=== PATIENT | male | born 1940 | race African-American/Black ===

== ENCOUNTER 2021-11-10 20:40 | Inpatient (IN) | payer OTHER ==
[~2021-11-10] VITALS: Ht 193 cm; Wt 173.9 kg
[2021-11-10] MEDS ORDERED: METHYLPREDNISOLONE SOD SUCC 125 MG/2 ML VIAL IV STA (21:17)
[2021-11-10] MEDS ORDERED: IPRATROPIUM BROMIDE (0.02%) 0.5MG/2.5ML NEB HHN STA (21:17)
[2021-11-10] MEDS ORDERED: ALBUTEROL (0.083%) 2.5MG/3ML NEB HHN SCH (21:30)
[2021-11-10 21:56] LABS: BASOPHILS % 1.3 % (0.0-2.0); EOSINOPHILS % 1.1 % (0.0-5.0); HEMATOCRIT. 36.2 % (42.0-52.0); HEMOGLOBIN. 11.2 g/dL (14.0-18.0); LYMPHOCYTES % 17.6 % (20.0-50.0); MEAN CORPUSCULAR HEMOGLOBIN 23.3 pg (28.0-32.0); MEAN CORPUSCULAR VOLUME 75.8 fL (80.0-94.0); MEAN PLATELET VOLUME 10.4 fl (7.4-10.4); MONOCYTES % 11.5 % (2.0-8.0); NEUTROPHILS % 68.5 % (40.0-76.0); PLATELET 115 x1000/uL (130-400); RED BLOOD CELL COUNT 4.78 mill/uL (4.7-6.1)
[2021-11-10 22:03] LABS: CHLORIDE 101 mEq/L (98-107)
[2021-11-10] MEDS ORDERED: DOXYCYCLINE HYCLATE 100 MG/VIAL IV ONE (23:45)
[2021-11-10] MEDS ORDERED: CEFTRIAXONE 1 G PREMIX 50 ML IV ONE (23:45)
[2021-11-11] MEDS ORDERED: DOXYCYCLINE 100MG in DEXTROSE 5% WATER 100ML IV SCH ×2
[2021-11-11] MEDS ORDERED: METOPROLOL TARTRATE 5MG/5ML VIAL IV SCH (00:45)
[2021-11-11] MEDS ORDERED: FUROSEMIDE 40MG/4ML VIAL IVP ONE (00:45)
[2021-11-11] MEDS ORDERED: IPRATROPIUM/ALBUTEROL 0.5-3(2.5)MG/3ML NEB HHN PRN (12:45)
[2021-11-11] MEDS ORDERED: ACETAMINOPHEN 325MG TABLET PO PRN (12:45)
[2021-11-11] MEDS: METHYLPREDNISOLONE SOD SUCC 40 MG/ML VIAL IV SCH ×2 (14:13→21:16)
[2021-11-11 15:27] VITALS: BP 133/83
[2021-11-11] MEDS ORDERED: ASPI-1497 MT (15:45)
[2021-11-11] MEDS ORDERED: FURO40TA5 MT (15:45)
[2021-11-11] MEDS ORDERED: ATOR-2 MT (15:45)
[2021-11-11] MEDS ORDERED: ATEN-42 MT (15:45)
[2021-11-11] MEDS ORDERED: TERA2CAP4 MT (15:45)
[2021-11-11] MEDS ORDERED: FLUT1BLS12 IH (15:45)
[2021-11-11] MEDS ORDERED: LOSA25TA26 MT (15:45)
[2021-11-11] MEDS ORDERED: ALBUTERO (15:45)
[2021-11-11] MEDS ORDERED: GLIP1TAB4 MT (15:45)
[2021-11-11] MEDS ORDERED: CHOL400D7 PO (15:45)
[2021-11-11 16:00] VITALS: BP 118/80
[2021-11-11 16:12] LABS: HEMATOCRIT. 37.3 % (42.0-52.0); HEMOGLOBIN. 10.8 g/dL (14.0-18.0); LYMPHOCYTES % 12.3 % (20.0-50.0); MEAN CORPUSCULAR HEMOGLOBIN 22.7 pg (28.0-32.0); MEAN CORPUSCULAR VOLUME 78.5 fL (80.0-94.0); MEAN PLATELET VOLUME 10.7 fl (7.4-10.4); MONOCYTES % 9.9 % (2.0-8.0); NEUTROPHILS % 77.8 % (40.0-76.0); PLATELET 116 x1000/uL (130-400); RED BLOOD CELL COUNT 4.76 mill/uL (4.7-6.1); RED CELL DISTRIBUTION WIDTH 21.3 % (11.6-14.6)
[2021-11-11] MEDS: FUROSEMIDE 40MG/4ML VIAL IVP SCH (17:56)
[2021-11-11] MEDS ORDERED: DILTIAZEM HCL 5MG/ML 5ML VIAL IV NR (18:45)
[2021-11-11] MEDS ORDERED: SODIUM POLYSTYRENE SULFONATE 15 G/60 ML BOT PO NR (18:45)
[2021-11-11 20:00] VITALS: BP 139/63
[2021-11-11] MEDS: FAMOTIDINE 20MG TABLET PO SCH (21:15)
[2021-11-11] MEDS: METOPROLOL TARTRATE 50MG TABLET PO SCH (21:16)
[2021-11-11] MEDS: ENOXAPARIN 40MG/0.4ML SYR SUBCUT SCH (21:16)
[2021-11-12] VITALS (17 sets, daily range): BP systolic 54–154; BP diastolic 34–102
[2021-11-12] MEDS: DILTIAZEM HCL 60MG TABLET PO SCH ×3 (00:40→12:34)
[2021-11-12] MEDS: METHYLPREDNISOLONE SOD SUCC 40 MG/ML VIAL IV SCH (05:31)
[2021-11-12 06:13] LABS: HEMATOCRIT. 36.1 % (42.0-52.0); LYMPHOCYTES % 8.1 % (20.0-50.0); MEAN CORPUSCULAR HEMOGLOBIN 23.6 pg (28.0-32.0); MEAN CORPUSCULAR VOLUME 77.4 fL (80.0-94.0); MEAN PLATELET VOLUME 10.5 fl (7.4-10.4); MONOCYTES % 8.8 % (2.0-8.0); NEUTROPHILS % 83.1 % (40.0-76.0); PLATELET 112 x1000/uL (130-400); RED BLOOD CELL COUNT 4.66 mill/uL (4.7-6.1); RED CELL DISTRIBUTION WIDTH 21.8 % (11.6-14.6)
[2021-11-12] MEDS: FUROSEMIDE 40MG/4ML VIAL IVP SCH (06:18)
[2021-11-12] MEDS: METOPROLOL TARTRATE 50MG TABLET PO SCH (08:21)
[2021-11-12] MEDS: ENOXAPARIN 40MG/0.4ML SYR SUBCUT SCH ×2 (08:21→21:37)
[2021-11-12 10:16] LABS: BG BASE EXCESS 3.3 mmol/L (-2.0-2.0); BG CARBOXYHEMOGLOBIN 0.1 % (0.5-1.5); BG DEOXYHEMOGLOBIN 7.8 % (0.0-5.0); BG FRACTION INSPIRED OXYGEN 28; BG HCO3 ACT 36.1 mmol/L (22.0-26.0); BG METHEMOGLOBIN 0.5 % (0.0-1.5); BG OXYGEN SATURATION 92.2 % (92.0-98.5); BG OXYHEMOGLOBIN 91.6 % (94.0-97.0); BG PCO2 118.8 mmHg (35.0-45.0); BG PH 7.101 (7.350-7.450); BG PO2 78.3 mmHg (75.0-100.0); BG SAMPLE SITE LEFT RADIAL; BG TOTAL HEMOGLOBIN 11.9 g/dL (12.0-18.0); BG VENT MODE NASAL CANNULA
[2021-11-12] MEDS: IPRATROPIUM/ALBUTEROL 0.5-3(2.5)MG/3ML NEB HHN SCH ×3 (11:48→20:30)
[2021-11-12] MEDS ORDERED: INSULIN REGULAR (HUMULIN R) UD 100 UNITS/ML SYR IV SCH (12:00)
[2021-11-12] MEDS ORDERED: SODIUM BICARBONATE 8.4% 1 MEQ/ML 50ML SYR IV SCH (12:00)
[2021-11-12] MEDS ORDERED: DEXTROSE 50% WATER 50ML SYRINGE IV SCH (12:00)
[2021-11-12] MEDS ORDERED: CALCIUM GLUCONATE 1GM PREMIX 50 ML IV SCH (13:00)
[2021-11-12] MEDS ORDERED: SODIUM POLYSTYRENE SULFONATE 15 G/60 ML BOT PO SCH (13:00)
[2021-11-12] MEDS ORDERED: LIDOCAINE HCL 1% 20ML VIAL (Pyxis) INJ ONE (13:27)
[2021-11-12 14:41] LABS: BG BASE EXCESS 1.2 mmol/L (-2.0-2.0); BG CARBOXYHEMOGLOBIN 0.9 % (0.5-1.5); BG FRACTION INSPIRED OXYGEN 50; BG METHEMOGLOBIN 0.4 % (0.0-1.5); BG OXYHEMOGLOBIN 95.7 % (94.0-97.0); BG PCO2 102.5 mmHg (35.0-45.0); BG PH 7.125 (7.350-7.450); BG PO2 103.9 mmHg (75.0-100.0); BG SAMPLE SITE LEFT RADIAL; BG TOTAL HEMOGLOBIN 11.7 g/dL (12.0-18.0); BG TOTAL RESPIRATORY RATE 22 b/min; BG VENT MODE MASK - BIPAP
[2021-11-12] MEDS ORDERED: FUROSEMIDE 40MG/4ML VIAL IVP SCH ×2 (15:00→18:00)
[2021-11-12] MEDS: METHYLPREDNISOLONE SOD SUCC 125 MG/2 ML VIAL IV SCH ×3 (15:26→23:27)
[2021-11-12] MEDS ORDERED: BUMETANIDE 1MG/4ML VIAL IV NR (20:00)
[2021-11-12] MEDS ORDERED: SODIUM POLYSTYRENE SULFONATE 15 G/60 ML BOT PO NR (20:00)
[2021-11-12] MEDS: FAMOTIDINE 20MG TABLET PO SCH (21:32)
[2021-11-12] MEDS: LACTULOSE 20G/30ML UDC PO SCH (21:32)
[2021-11-12] MEDS: DILTIAZEM HCL 30MG TABLET PO SCH (21:36)
[2021-11-12 22:21] LABS: BG BASE EXCESS -0.3 mmol/L (-2.0-2.0); BG CARBOXYHEMOGLOBIN 0.7 % (0.5-1.5); BG DEOXYHEMOGLOBIN 5.6 % (0.0-5.0); BG FRACTION INSPIRED OXYGEN 40; BG HCO3 ACT 28.8 mmol/L (22.0-26.0); BG METHEMOGLOBIN 0.3 % (0.0-1.5); BG OXYGEN SATURATION 94.3 % (92.0-98.5); BG OXYHEMOGLOBIN 93.4 % (94.0-97.0); BG PH 7.226 (7.350-7.450); BG PO2 81.8 mmHg (75.0-100.0); BG SAMPLE SITE RIGHT RADIAL; BG TOTAL HEMOGLOBIN 12.1 g/dL (12.0-18.0); BG TOTAL RESPIRATORY RATE 28 b/min; BG VENT MODE MASK - BIPAP
[2021-11-13] VITALS (21 sets, daily range): BP systolic 99–149; BP diastolic 49–114
[2021-11-13] MEDS: IPRATROPIUM/ALBUTEROL 0.5-3(2.5)MG/3ML NEB HHN SCH ×4 (00:26→21:39)
[2021-11-13 05:25] LABS: BG BASE EXCESS 6.8 mmol/L (-2.0-2.0); BG DEOXYHEMOGLOBIN 6.7 % (0.0-5.0); BG FRACTION INSPIRED OXYGEN 40; BG HCO3 ACT 36.8 mmol/L (22.0-26.0); BG METHEMOGLOBIN 0.3 % (0.0-1.5); BG OXYGEN SATURATION 93.2 % (92.0-98.5); BG PCO2 86.6 mmHg (35.0-45.0); BG PH 7.246 (7.350-7.450); BG PO2 76.3 mmHg (75.0-100.0); BG SAMPLE SITE RIGHT RADIAL; BG TOTAL RESPIRATORY RATE 29 b/min; BG VENT MODE MASK - BIPAP
[2021-11-13] MEDS: DILTIAZEM HCL 30MG TABLET PO SCH ×3 (06:29→22:08)
[2021-11-13] MEDS: LACTULOSE 20G/30ML UDC PO SCH (06:29)
[2021-11-13] MEDS: METHYLPREDNISOLONE SOD SUCC 125 MG/2 ML VIAL IV SCH ×3 (06:29→18:03)
[2021-11-13 07:01] LABS: HEMATOCRIT. 35.9 % (42.0-52.0); HEMOGLOBIN. 10.8 g/dL (14.0-18.0); MEAN CORPUSCULAR HEMOGLOBIN 23.5 pg (28.0-32.0); MEAN CORPUSCULAR VOLUME 77.9 fL (80.0-94.0); MEAN PLATELET VOLUME 10.6 fl (7.4-10.4); PLATELET 104 x1000/uL (130-400); RED CELL DISTRIBUTION WIDTH 20.8 % (11.6-14.6)
[2021-11-13 09:23] LABS: BG BASE EXCESS 7.3 mmol/L (-2.0-2.0); BG DEOXYHEMOGLOBIN 3.6 % (0.0-5.0); BG FRACTION INSPIRED OXYGEN 40; BG HCO3 ACT 36.6 mmol/L (22.0-26.0); BG METHEMOGLOBIN 0.3 % (0.0-1.5); BG OXYGEN SATURATION 96.4 % (92.0-98.5); BG OXYHEMOGLOBIN 95.1 % (94.0-97.0); BG PCO2 79.3 mmHg (35.0-45.0); BG PH 7.282 (7.350-7.450); BG PO2 91.4 mmHg (75.0-100.0); BG SAMPLE SITE RIGHT RADIAL; BG TOTAL HEMOGLOBIN 12.1 g/dL (12.0-18.0); BG VENT MODE MASK - BIPAP
[2021-11-13] MEDS: BUMETANIDE 2.5MG/10ML VIAL IV SCH ×3 (09:52→18:02)
[2021-11-13] MEDS: ENOXAPARIN 40MG/0.4ML SYR SUBCUT SCH ×2 (09:52→22:08)
[2021-11-13 12:17] LABS: INR 1.4; PROTHROMBIN TIME 14.7 sec (9.6-11.0)
[2021-11-13 18:08] LABS: PLATELET ESTIMATE DECREASED
[2021-11-13] MEDS: FAMOTIDINE 20MG TABLET PO SCH (22:08)
[2021-11-14] VITALS (12 sets, daily range): BP systolic 121–155; BP diastolic 52–94
[2021-11-14] MEDS: METHYLPREDNISOLONE SOD SUCC 125 MG/2 ML VIAL IV SCH ×4 (00:45→18:20)
[2021-11-14] MEDS: IPRATROPIUM/ALBUTEROL 0.5-3(2.5)MG/3ML NEB HHN SCH ×6 (01:26→20:50)
[2021-11-14] MEDS: DILTIAZEM HCL 30MG TABLET PO SCH ×2 (06:27→13:07)
[2021-11-14 07:17] LABS: HEMATOCRIT. 31.7 % (42.0-52.0); HEMOGLOBIN. 10.1 g/dL (14.0-18.0); MEAN CORPUSCULAR VOLUME 75.8 fL (80.0-94.0); RED BLOOD CELL COUNT 4.19 mill/uL (4.7-6.1); RED CELL DISTRIBUTION WIDTH 20.4 % (11.6-14.6)
[2021-11-14] MEDS: LACTULOSE 20G/30ML UDC PO SCH (08:14)
[2021-11-14] MEDS: BUMETANIDE 2.5MG/10ML VIAL IV SCH ×3 (08:14→18:19)
[2021-11-14] MEDS: ENOXAPARIN 40MG/0.4ML SYR SUBCUT SCH ×2 (08:14→21:48)
[2021-11-14 09:33] LABS: BG BASE EXCESS 5.1 mmol/L (-2.0-2.0); BG CARBOXYHEMOGLOBIN 0.6 % (0.5-1.5); BG DEOXYHEMOGLOBIN 9.7 % (0.0-5.0); BG FRACTION INSPIRED OXYGEN 40; BG HCO3 ACT 30.2 mmol/L (22.0-26.0); BG METHEMOGLOBIN 0.1 % (0.0-1.5); BG OXYGEN SATURATION 90.2 % (92.0-98.5); BG OXYHEMOGLOBIN 89.6 % (94.0-97.0); BG PCO2 46.8 mmHg (35.0-45.0); BG PH 7.427 (7.350-7.450); BG PO2 64.8 mmHg (75.0-100.0); BG SAMPLE SITE RIGHT RADIAL; BG TOTAL HEMOGLOBIN 10.9 g/dL (12.0-18.0); BG TOTAL RESPIRATORY RATE 28 b/min; BG VENT MODE MASK - BIPAP
[2021-11-14 13:13] LABS: PLATELET 93 x1000/uL (130-400)
[2021-11-14] MEDS ORDERED: DEXTROSE 50% WATER 50ML SYRINGE IV PRN (13:15)
[2021-11-14 13:18] LABS: PLATELET ESTIMATE DECREASED
[2021-11-14] MEDS: BLOOD SUGAR DIAGNOSTIC STRIP TEST SCH ×2 (17:09→21:12)
[2021-11-14] MEDS: INSULIN LISPRO 100 UNITS/ML SUBCUT SCH ×2 (18:20→21:14)
[2021-11-14] MEDS: FAMOTIDINE 20MG TABLET PO SCH (21:13)
[2021-11-15] VITALS (12 sets, daily range): BP systolic 131–156; BP diastolic 68–94
[2021-11-15] MEDS: IPRATROPIUM/ALBUTEROL 0.5-3(2.5)MG/3ML NEB HHN SCH ×3 (00:01→23:35)
[2021-11-15] MEDS: METHYLPREDNISOLONE SOD SUCC 125 MG/2 ML VIAL IV SCH ×4 (01:49→18:41)
[2021-11-15] MEDS: BLOOD SUGAR DIAGNOSTIC STRIP TEST SCH ×4 (06:27→21:12)
[2021-11-15] MEDS: BUMETANIDE 2.5MG/10ML VIAL IV SCH ×2 (06:27→18:41)
[2021-11-15 07:46] LABS: HEMATOCRIT. 33.7 % (42.0-52.0); HEMOGLOBIN. 10.4 g/dL (14.0-18.0); MEAN CORPUSCULAR HEMOGLOBIN 23.5 pg (28.0-32.0); MEAN CORPUSCULAR VOLUME 76.5 fL (80.0-94.0); MEAN PLATELET VOLUME 9.3 fl (7.4-10.4); PLATELET 81 x1000/uL (130-400); RED BLOOD CELL COUNT 4.41 mill/uL (4.7-6.1); RED CELL DISTRIBUTION WIDTH 19.7 % (11.6-14.6)
[2021-11-15] MEDS: IPRATROPIUM BROMIDE (0.02%) 0.5MG/2.5ML NEB HHN PRN ×3 (08:14→16:42)
[2021-11-15] MEDS: LACTULOSE 20G/30ML UDC PO SCH (09:13)
[2021-11-15] MEDS: ENOXAPARIN 40MG/0.4ML SYR SUBCUT SCH (09:13)
[2021-11-15] MEDS: INSULIN LISPRO 100 UNITS/ML SUBCUT SCH ×4 (09:14→21:12)
[2021-11-15] MEDS ORDERED: INSULIN GLARGINE UD 100 UNITS/ML SYR SUBCUT NR (13:30)
[2021-11-15 13:56] LABS: PLATELET ESTIMATE DECREASED
[2021-11-15] MEDS: FAMOTIDINE 20MG TABLET PO SCH (21:10)
[2021-11-15] MEDS: INSULIN GLARGINE UD 100 UNITS/ML SYR SUBCUT SCH (21:12)
[2021-11-16] VITALS (12 sets, daily range): BP systolic 136–156; BP diastolic 76–98
[2021-11-16] MEDS: METHYLPREDNISOLONE SOD SUCC 125 MG/2 ML VIAL IV SCH ×4 (01:43→21:51)
[2021-11-16] MEDS: IPRATROPIUM/ALBUTEROL 0.5-3(2.5)MG/3ML NEB HHN SCH ×3 (03:52→21:54)
[2021-11-16] MEDS: BLOOD SUGAR DIAGNOSTIC STRIP TEST SCH ×4 (06:15→21:51)
[2021-11-16] MEDS: BUMETANIDE 2.5MG/10ML VIAL IV SCH ×2 (06:15→17:46)
[2021-11-16] MEDS: LACTULOSE 20G/30ML UDC PO SCH (08:06)
[2021-11-16] MEDS: INSULIN LISPRO 100 UNITS/ML SUBCUT SCH ×4 (08:07→21:52)
[2021-11-16] MEDS: INSULIN GLARGINE UD 100 UNITS/ML SYR SUBCUT SCH ×2 (12:55→21:53)
[2021-11-16] MEDS: FAMOTIDINE 20MG TABLET PO SCH (21:53)
[2021-11-17] VITALS (12 sets, daily range): BP systolic 131–161; BP diastolic 62–99
[2021-11-17] MEDS: BUMETANIDE 2.5MG/10ML VIAL IV SCH ×2 (05:59→18:30)
[2021-11-17] MEDS: BLOOD SUGAR DIAGNOSTIC STRIP TEST SCH ×4 (05:59→21:46)
[2021-11-17] MEDS: METHYLPREDNISOLONE SOD SUCC 125 MG/2 ML VIAL IV SCH ×3 (05:59→21:46)
[2021-11-17] MEDS: IPRATROPIUM/ALBUTEROL 0.5-3(2.5)MG/3ML NEB HHN SCH ×3 (07:45→21:38)
[2021-11-17] MEDS: LACTULOSE 20G/30ML UDC PO SCH (08:33)
[2021-11-17] MEDS: INSULIN LISPRO 100 UNITS/ML SUBCUT SCH ×4 (08:33→21:46)
[2021-11-17] MEDS ORDERED: METOPROLOL TARTRATE 5MG/5ML VIAL IV NR (08:45)
[2021-11-17 10:31] LABS: CHLORIDE 92 mEq/L (98-107)
[2021-11-17] MEDS: INSULIN GLARGINE UD 100 UNITS/ML SYR SUBCUT SCH ×2 (10:45→21:46)
[2021-11-17] MEDS: FAMOTIDINE 20MG TABLET PO SCH (21:44)
[2021-11-17] MEDS: METOPROLOL TARTRATE 50MG TABLET PO SCH (21:44)
[2021-11-18] VITALS (12 sets, daily range): BP systolic 132–155; BP diastolic 79–108
[2021-11-18] MEDS: IPRATROPIUM/ALBUTEROL 0.5-3(2.5)MG/3ML NEB HHN SCH ×6 (02:23→21:17)
[2021-11-18] MEDS: BUMETANIDE 2.5MG/10ML VIAL IV SCH ×2 (06:04→18:00)
[2021-11-18] MEDS: METHYLPREDNISOLONE SOD SUCC 125 MG/2 ML VIAL IV SCH ×3 (06:04→21:25)
[2021-11-18] MEDS: BLOOD SUGAR DIAGNOSTIC STRIP TEST SCH ×4 (06:19→21:27)
[2021-11-18 07:00] LABS: HEMATOCRIT. 35.5 % (42.0-52.0); HEMOGLOBIN. 11.1 g/dL (14.0-18.0); MEAN CORPUSCULAR HEMOGLOBIN 23.5 pg (28.0-32.0); MEAN CORPUSCULAR VOLUME 75.4 fL (80.0-94.0); RED BLOOD CELL COUNT 4.71 mill/uL (4.7-6.1)
[2021-11-18 08:52] LABS: PLATELET ESTIMATE DECREASED
[2021-11-18 08:53] LABS: PLATELET 77 x1000/uL (130-400)
[2021-11-18] MEDS: LACTULOSE 20G/30ML UDC PO SCH (09:14)
[2021-11-18] MEDS: METOPROLOL TARTRATE 50MG TABLET PO SCH ×2 (09:14→21:26)
[2021-11-18] MEDS: INSULIN LISPRO 100 UNITS/ML SUBCUT SCH ×4 (09:15→21:26)
[2021-11-18] MEDS: INSULIN GLARGINE UD 100 UNITS/ML SYR SUBCUT SCH ×2 (09:15→21:27)
[2021-11-18] MEDS: FAMOTIDINE 20MG TABLET PO SCH (21:25)
== END 2021-11-19 00:45 | disposition home health service (06) | DRG 291 ==
LOC: ER 20:40 → MICUSO 11-11 00:31 → 8WST 11-11 13:15 → 3WST 11-12 10:54 → CVICU 11-12 21:11 → 3WST 11-13 03:13
PROVIDERS: ADMIT Internal Medicine; ATTEND Internal Medicine
PROC: 5A09357 Assistance with Respiratory Ventilation, Less than 24 Consecutive Hours, Continuous Positive Airway Pressure (ICD-10-PCS; 2021-11-10)
PROC: 05HY33Z Insertion of Infusion Device into Upper Vein, Percutaneous Approach (ICD-10-PCS; principal; 2021-11-12)
PROC: B54MZZA Ultrasonography of Right Upper Extremity Veins, Guidance (ICD-10-PCS; 2021-11-12)
PROC: 5A09457 Assistance with Respiratory Ventilation, 24-96 Consecutive Hours, Continuous Positive Airway Pressure (ICD-10-PCS; 2021-11-12)
PROC: 5A09357 Assistance with Respiratory Ventilation, Less than 24 Consecutive Hours, Continuous Positive Airway Pressure (ICD-10-PCS; 2021-11-15)
PROC: 5A09357 Assistance with Respiratory Ventilation, Less than 24 Consecutive Hours, Continuous Positive Airway Pressure (ICD-10-PCS; 2021-11-16)
PROC: 5A09357 Assistance with Respiratory Ventilation, Less than 24 Consecutive Hours, Continuous Positive Airway Pressure (ICD-10-PCS; 2021-11-17)
PROC: 5A09357 Assistance with Respiratory Ventilation, Less than 24 Consecutive Hours, Continuous Positive Airway Pressure (ICD-10-PCS; 2021-11-18)
DX: I11.0 Hypertensive heart disease with heart failure (principal); I50.41 Acute combined systolic (congestive) and diastolic (congestive) heart failure; N17.0 Acute kidney failure with tubular necrosis; G92.8 Other toxic encephalopathy; J96.01 Acute respiratory failure with hypoxia; J96.02 Acute respiratory failure with hypercapnia; E44.1 Mild protein-calorie malnutrition; J44.1 Chronic obstructive pulmonary disease with (acute) exacerbation; E66.2 Morbid (severe) obesity with alveolar hypoventilation; I47.1 Supraventricular tachycardia; Z68.42 Body mass index [BMI] 45.0-49.9, adult; E87.4 Mixed disorder of acid-base balance; K72.90 Hepatic failure, unspecified without coma; I42.9 Cardiomyopathy, unspecified; E87.5 Hyperkalemia; Z20.822 Contact with and (suspected) exposure to COVID-19; D69.6 Thrombocytopenia, unspecified; D50.9 Iron deficiency anemia, unspecified; I07.1 Rheumatic tricuspid insufficiency; I48.91 Unspecified atrial fibrillation; Z71.3 Dietary counseling and surveillance
CPT/HCPCS: 36415; 36600; 71045; 76937; 78580; 80048; 80053; 82140; 82375; 82805; 82962; 83036; 83880; 84132; 84484; 85025; 87426; 93005; 93306; 93970; 94640; 94660; 97162; 97166; 99291; C1725; J0610; J1650; J1815; J1940; J2920; J2930; J3490; J7060; A4315

== ENCOUNTER 2021-11-19 01:11 | Emergency (ER) | payer OTHER ==
[~2021-11-19] VITALS: Ht 193 cm; Wt 272.0 kg
[~2021-11-19 01:11] MED LIST: ALBUTERO; ASPI-1497 MT; ATEN-42 MT; ATOR-2 MT; CHOL400D7 PO; FLUT1BLS12 IH; LOSA25TA26 MT; TERA2CAP4 MT
[2021-11-19] MEDS ORDERED: IPRATROPIUM BROMIDE (0.02%) 0.5MG/2.5ML NEB HHN STA (01:29)
[2021-11-19 01:54] LABS: HEMATOCRIT. 39.5 % (42.0-52.0); HEMOGLOBIN. 12.2 g/dL (14.0-18.0); MEAN CORPUSCULAR HEMOGLOBIN 23.3 pg (28.0-32.0); MEAN CORPUSCULAR VOLUME 75.7 fL (80.0-94.0); RED BLOOD CELL COUNT 5.22 mill/uL (4.7-6.1); RED CELL DISTRIBUTION WIDTH 20.2 % (11.6-14.6)
[2021-11-19] MEDS: ALBUTEROL (0.083%) 2.5MG/3ML NEB HHN SCH ×3 (01:55→02:14)
[2021-11-19 02:01] LABS: CHLORIDE 90 mEq/L (98-107)
[2021-11-19 02:35] LABS: MEAN PLATELET VOLUME 8.5 fl (7.4-10.4)
[2021-11-19 02:36] LABS: PLATELET 87 x1000/uL (130-400)
[2021-11-19 02:43] LABS: PLATELET ESTIMATE DECREASED
[2021-11-19] MEDS ORDERED: FUROSEMIDE 40MG/4ML VIAL IVP ONE (04:00)
[2021-11-19 11:35] VITALS: BP 131/74
== END 2021-11-19 12:06 | disposition short-term general hospital (02) ==
LOC: ER 01:11
DX: I11.0 Hypertensive heart disease with heart failure (principal); I50.9 Heart failure, unspecified; J44.1 Chronic obstructive pulmonary disease with (acute) exacerbation; E11.9 Type 2 diabetes mellitus without complications; R55 Syncope and collapse; Z79.899 Other long term (current) drug therapy; Z88.0 Allergy status to penicillin; Z20.822 Contact with and (suspected) exposure to COVID-19
CPT/HCPCS: 36415; 71045; 80053; 82962; 83880; 84484; 85025; 87426; 93005; 94644; 99285; J1940